=== PATIENT | female | born 1955 | race Native Hawaiian/Other Pacific Islander ===

== ENCOUNTER 2018-10-09 16:57 | Emergency (ER) | payer OTHER, BC ==
[~2018-10-09] VITALS: Ht 160 cm; Wt 69.4 kg
[2018-10-09 17:00] VITALS: TEMP 99.1
[2018-10-09] MEDS ORDERED: OXYC10TA3 PO (19:36)
[2018-10-09] MEDS ORDERED: ROSU10TA PO (19:36)
[2018-10-09] MEDS ORDERED: XANAX XR1 MG PO (19:36)
[2018-10-09] MEDS ORDERED: FLUOXETINE40 MG PO (19:38)
[2018-10-09 19:50] VITALS: BP 129/81
== END 2018-10-09 19:50 | disposition home or self-care (01) ==
LOC: ED 16:57
DX: S39.012A Strain of muscle, fascia and tendon of lower back, initial encounter (principal); V59.50XA Passenger in pick-up truck or van injured in collision with unspecified motor vehicles in traffic accident, initial encounter; Y92.89 Other specified places as the place of occurrence of the external cause
CPT/HCPCS: 36415; 99283